=== PATIENT | male | born 1970 | race Caucasian/White ===

== ENCOUNTER 2016-05-20 19:31 | Emergency (ER) | payer SELFPAY ==
[2016-05-20] MEDS ORDERED: DOXYCYCLINE 100 MG TABLET PO STA (21:18)
[2016-05-20] MEDS ORDERED: DOXYCYCLINE 100 MG TABLET PO ONE (21:26)
== END 2016-05-20 21:38 | disposition home or self-care (01) ==
DX: J40 Bronchitis, not specified as acute or chronic (principal); E11.9 Type 2 diabetes mellitus without complications; E03.9 Hypothyroidism, unspecified; Q89.01 Asplenia (congenital)
CPT/HCPCS: 71020; 81001; 99283; 99284; A9270

== ENCOUNTER 2016-05-22 11:27 | Emergency (ER) | payer SELFPAY ==
[2016-05-22] MEDS ORDERED: LIDOCAINE 1%-EPI 1:100000 20 ML MDV ONE (12:53)
[2016-05-22] MEDS ORDERED: LIDOCAINE-MPF 1% 5 ML VIAL ONE (12:57)
== END 2016-05-22 14:23 | disposition home or self-care (01) ==
DX: M25.471 Effusion, right ankle (principal); E11.9 Type 2 diabetes mellitus without complications

== ENCOUNTER 2016-06-25 18:08 | Emergency (ER) | payer SELFPAY ==
[2016-06-25] MEDS ORDERED: ALBUTEROL NEB 2.5 MG/3 ML INH ONE (18:57)
[2016-06-25] MEDS ORDERED: DEXAMETHASONE 10 MG/ML VIAL PO STA (19:05)
[2016-06-25] MEDS ORDERED: ALBUTEROL NEB 2.5 MG/3 ML INH STA (19:05)
[2016-06-25] MEDS ORDERED: AMOXICILLIN 250 MG CAPSULE PO STA (19:05)
[2016-06-25] MEDS ORDERED: DEXAMETHASONE 10 MG/ML VIAL ONE (19:13)
[2016-06-25] MEDS ORDERED: CHERRY SYRUP 10 ML UDC PO ONE (19:13)
[2016-06-25] MEDS ORDERED: CETIRIZINE 10 MG TABLET ONE (19:13)
[2016-06-25] MEDS ORDERED: AMOXICILLIN 250 MG CAPSULE PO ONE (19:15)
== END 2016-06-25 19:55 | disposition home or self-care (01) ==
DX: J40 Bronchitis, not specified as acute or chronic (principal); E11.9 Type 2 diabetes mellitus without complications; E03.9 Hypothyroidism, unspecified; I10 Essential (primary) hypertension; Z90.81 Acquired absence of spleen
CPT/HCPCS: 94640; 94664; 99283; A9270; J7613

== ENCOUNTER 2016-07-20 04:28 | Outpatient (CLI) | payer SELFPAY | END 2016-07-20 04:29 | disposition critical access hospital (66) | DX: R10.9 Unspecified abdominal pain (principal) | CPT/HCPCS: A0425; A0429 ==

== ENCOUNTER 2016-07-20 04:44 | Emergency (ER) | payer SELFPAY ==
[2016-07-20] MEDS ORDERED: SODIUM CHLORIDE 0.9% 1,000 ML IV STA (05:33)
[2016-07-20] MEDS ORDERED: ACETAMINOPHEN 325 MG TABLET PO STA (05:33)
[2016-07-20] MEDS ORDERED: ACETAMINOPHEN 325 MG TABLET PO ONE (05:37)
[2016-07-20] MEDS ORDERED: AZITHROMYCIN 250 MG TABLET PO STA (08:10)
[2016-07-20] MEDS ORDERED: AZITHROMYCIN 250 MG TABLET PO ONE (08:18)
== END 2016-07-20 08:27 | disposition home or self-care (01) ==
DX: J40 Bronchitis, not specified as acute or chronic (principal); K80.20 Calculus of gallbladder without cholecystitis without obstruction; I10 Essential (primary) hypertension; E11.9 Type 2 diabetes mellitus without complications; E03.9 Hypothyroidism, unspecified
CPT/HCPCS: 36415; 76705; 80053; 83690; 85025; 96360; 99283; 99284; A9270